=== PATIENT | male | born 1970 | race African-American/Black ===

== ENCOUNTER 2016-08-03 18:40 | Outpatient (CLI) | payer BC, MEDICARE ==
[~2016-08-03 18:40] MED LIST: COREG25 MG PO; COZAAR50 MG PO; LASIX20 MG PO; LEVEMIR100 U/M1; LEVEMIR100 U/M1 SC; NORVASC10 MG PO; NOVOLIN 70/30 110 ML; NOVOLOG100 U/M1; PHOSLO667 MG PO; VICODIN PO
[2016-08-04 00:08] LABS: BASOPHILS 0.3 % (0.0-2.0); HEMATOCRIT 39.5 % (42.0-54.0); HEMOGLOBIN 12.3 g/dL (13.5-17.5); IMMATURE GRANULOCYTES 0.2 % (0-5); LYMPHOCYTES 21.9 % (15-50); MCH 29.5 pg (26.0-34.0); MCHC 31.1 g/dL (31.0-37.0); MCV 94.7 fL (80.0-100.0); MONOCYTES 7.5 % (2-11); NEUTROPHILS 69.1 % (40-80); PLATELET COUNT 171 10x3/uL (130-400); RBC 4.17 10x6/uL (4.20-6.10); RDW 15.1 % (11.5-14.5)
[2016-08-04 00:35] LABS: ALBUMIN 3.9 g/dL (3.4-5.0); ANION GAP 20.1 mmol/L (8-16); BILIRUBIN - TOTAL 0.97 mg/dL (0.2-1.3); CALCIUM 7.7 mg/dL (8.5-10.1); CREATININE - SERUM 10.7 mg/dL (0.6-1.3); POTASSIUM - SERUM 5.1 mmol/L (3.5-5.1)
[2016-08-04] MEDS ORDERED: PHOSLO667 MG PO (00:35)
[2016-08-04 05:08] LABS: BASOPHILS 0.4 % (0.0-2.0); EOSINOPHILS 1.3 % (0-7); HEMOGLOBIN 12.3 g/dL (13.5-17.5); IMMATURE GRANULOCYTES 0.2 % (0-5); LYMPHOCYTES 25.4 % (15-50); MCH 29.4 pg (26.0-34.0); MCHC 30.8 g/dL (31.0-37.0); MCV 95.5 fL (80.0-100.0); MONOCYTES 8.3 % (2-11); NEUTROPHILS 64.4 % (40-80); PLATELET COUNT 140 10x3/uL (130-400); RBC 4.19 10x6/uL (4.20-6.10); RDW 15.1 % (11.5-14.5); WBC 5.4 10x3/uL (4.8-10.8)
[2016-08-04 05:26] LABS: ANION GAP 16.9 mmol/L (8-16); CALCIUM 7.7 mg/dL (8.5-10.1); CARBON DIOXIDE 29.5 mmol/L (21.0-32.0); CREATININE - SERUM 11.4 mg/dL (0.6-1.3); POTASSIUM - SERUM 5.4 mmol/L (3.5-5.1)
[2016-08-04] MEDS ORDERED: KAYEXALATE15 G/60 ML PO (09:53)
== END 2016-08-04 12:34 | disposition home or self-care (01) ==
LOC: D.OPS 18:40
PROVIDERS: Internal Medicine Nephrology
DX: E87.5 Hyperkalemia (principal); N18.6 End stage renal disease; I12.0 Hypertensive chronic kidney disease with stage 5 chronic kidney disease or end stage renal disease; E11.22 Type 2 diabetes mellitus with diabetic chronic kidney disease; Z99.2 Dependence on renal dialysis; Z79.4 Long term (current) use of insulin

== ENCOUNTER 2017-07-29 07:46 | Day surgery (SDC) | payer BC, MEDICARE ==
[~2017-07-29] VITALS: Ht 177.8 cm; Wt 85.7 kg
--- NOTE | ~2017-07-29 | OP ---
PATIENT NAME: RADHA DSOUZA MEDICAL RECORD: [id number] :72 LOCATION:[facility] ADMISSION DATE: SURGEON: OLAYINKA MARTIN MD DATE OF OPERATION: 07/29/2017 REFERRING PHYSICIAN: Dr. Yang PREOPERATIVE DIAGNOSIS: End-stage renal disease. POSTOPERATIVE DIAGNOSIS: End-stage renal disease. OPERATION PERFORMED: Insertion left upper extremity HeRO AV graft, implanting a new Acuseal PTFE graft in a very shallow or superficial subcutaneous plane from the distal axillary or most proximal brachial artery to the HeRO outflow device in the left deltopectoral groove. SURGEON: Olayinka Martin MD ANESTHESIA: General with LMA per PIPE CLEANING MACHINE OPERATOR. PREOP NOTE: Mr. Dsouza is a 47-year-old -Irish male from [place], who has diabetes and hypertension, has developed end-stage renal disease and is now on dialysis and at this time is catheter dependent with a PVC in the right internal jugular vein position. He has had numerous prior accesses, which have thrombosed. He has had a HeRO graft in the left upper extremity, which also thrombosed but this was several months ago. Dr. Lee had operated on him and had difficulties with a severely arthrosclerotic brachial artery. I believe, the origin of the HeRO graft was from the distal brachial above the level of the antecubital space from the mid humeral level of the brachial artery. This gentleman is brought to the hospital and to the operating room today for the first time for surgery with me. I plan to remove the thrombus from his HeRO graft and do revision of the PTFE segment. Under general anesthesia, the patient was prepped and draped in sterile manner and I then examined his graft in left upper extremity with ultrasound. I noted that the PTFE portion of the HeRO graft was deeper than I prefer in the upper half of the arm. Actually, it was beneath the fascial level and partially intramuscular. Distally, it was deep in the subcutaneous tissues. I examined the brachial artery from elbow and arm. I saw that the axillary artery distally and the proximal brachial artery appeared suitable for anastomosis to provide arterial inflow for dialysis graft. There was a great deal of scarring in that area. The patient has had previous mobilization of the basilic vein and has had grafts and stents in the axilla. I did make then a longitudinal incision in the upper arm up to the axilla, and through the fairly dense scar tissue, exposed the axillary artery and controlled it with Silastic loops. I did my best during the dissection to avoid injury by stretch or sharp trauma or electrocautery to the surrounding brachial plexus. I made a counterincision distally on the arm and exposed the PTFE graft and confirmed what indeed was in my opinion too deep. I then made an incision over the deltopectoral groove and exposed the HeRO outflow device and its junction coupling with the PTFE graft. I transected the PTFE graft and removed thrombus from the outflow device by aspiration and passage of a 4-Estonian Scott embolectomy catheter and then the outflow device was flushed with heparinized saline, after which contrast was injected with digital C-arm fluoroscopy, performing digital subtraction angiography and free flow of contrast into the right atrium was confirmed. I then also noted that OPERATIVE REPORT [id number] RADHA DSOUZA the HeRO outflow device was in good position with its tip deep in the right atrium and no evidence of any kinks or other complications. I then flushed and heparin locked the outflow device. I chose a 50-cm long, 6-mm diameter straight Acuseal [place] PTFE graft and opened a HeRO repair kit and placed the Acuseal device on the connector. I clamped the outflow device directly and then transected it proximal to the old connector and attached the new connector. I then aspirated from the end of the Acuseal graft and returned blood without thrombus. The graft and the outflow device were then again flushed generously with heparinized saline and clamped. The graft was pulled through a very shallow immediately subcutaneous tunnel from the deltopectoral groove down to the counterincision just above the antecubital space and from there backup the medial aspect of the arm to the axillary incision. The artery was occluded with Silastic loops. It was opened for distance of about 6 mm. It was flushed proximally and distally with heparinized saline. The Acuseal graft was transected and bevelled and anastomosed to the artery, end of graft to side artery with running 6-0 Prolene. After the anastomosis suturing was completed, it was further sealed with BioGlue. When that had time to cure, the occluding clamps and loops were released and immediately good flow was established in the HeRO graft and hemostasis was excellent. The wounds were then irrigated as it had been intermittently throughout the procedure with gentamicin and Ancef solution. The patient was given a gram of Ancef intraoperatively as well. The axillary artery proximal and distal was interrogated with Doppler and there was good polyphasic flow present on both sides of the anastomosis and at the antecubital level on the brachial artery. The wounds were infiltrated with 0.25% Marcaine and then closed without the use of drains with interrupted 3-0 Vicryl. I did use 2-0 Prolene suture to anchor the HeRO connector junction to the fascia in the deltopectoral groove. The skin incisions, 3 of them, were closed with running intracuticular 4-0 Monocryl and Dermabond glue. They were dressed with Maxorb Ag, Tegaderm, and Cavilon skin prep. The patient's right internal jugular tunneled dialysis catheter was not removed or manipulated today. I will plan for the patient to most likely go home today, assuming his pain control postop is adequate. I will have him continue the same diet and medications at home and continue his routine dialysis schedule tomorrow. I will have him come back to see me in my office next week. At that time, if his HeRO graft is functioning and there is no reason to delay any longer, we will have the Acuseal graft accessed, and within a week or two of that, we can have the tunneled catheter removed. Blood loss during the operation was estimated at about 20 cc to 30 cc, none was replaced intraoperatively. All sponges, instruments, and needles were accounted for. No drain was used and no surgical specimen was submitted for histopathology. Thrombus removed from the HeRO was discarded. ADDENDUM The patient will be continued on Plavix 75 mg a day as he has been preoperatively. I am also going to add, if his insurance will cover it, Eliquis 2.5 mg b.i.d. Then, also if he has not had a thorough thrombophilia evaluation, he should have those lab studies conducted. Also, the patient has a history of staph infection and I am going to place him on 100 mg of doxycycline daily for 30 days. OPERATIVE REPORT [id number] RADHA DSOUZAELE BUFFYINT:[id number] Voice Confirmation ID: [id number] DOCUMENT ID: [id number] 08/11/2017 Edited to fill in pre/postop diagnosis, OLAYINKA Coello MD at 2012 CC: YUMIKO YANG [id number] DICTATION DATE: 07/29/17 1640 FISH NET MAKER: 07/29/17 1836 [facility] 07/29/17 [place] [place] [address]
[~2017-07-29 07:46] MED LIST changes: +KAYEXALATE15 G/60 ML PO
[2017-07-29 08:48] VITALS: BP 94/42; Ht 177.8 cm; Wt 85.7 kg
[2017-07-29] MEDS ORDERED: PLAVIX75 MG PO (08:53)
[2017-07-29 08:56] LABS: BASOPHILS 0.2 % (0-2); EOSINOPHILS 2.2 % (0-7); HEMATOCRIT 42.1 % (42.0-54.0); HEMOGLOBIN 13.1 g/dL (13.5-17.5); IMMATURE GRANULOCYTES 0.9 % (0-5); LYMPHOCYTES 16.5 % (15-50); MCH 28.9 pg (26.0-34.0); MCHC 31.1 g/dL (31.0-37.0); MCV 92.9 fL (80.0-100.0); MONOCYTES 7.4 % (2-11); NEUTROPHILS 72.8 % (40-80); PLATELET COUNT 113 10x3/uL (130-400); RBC 4.53 10x6/uL (4.20-6.10); RDW 16.1 % (11.5-14.5); WBC 5.4 10x3/uL (4.8-10.8)
[2017-07-29 09:05] LABS: APTT 20.8 SECONDS (22.8-39.4); INR 1.04 (0.85-1.17); PROTIME 13.2 SECONDS (11.6-15.0)
[2017-07-29 09:07] LABS: ANION GAP 22.4 mmol/L (8-16); CALCIUM 8.5 mg/dL (8.5-10.1); CARBON DIOXIDE 24.7 mmol/L (21.0-32.0); CREATININE - SERUM 10.5 mg/dL (0.6-1.3); POTASSIUM - SERUM 5.1 mmol/L (3.5-5.1)
[2017-07-29] MEDS ORDERED: ELIQUIS2.5 MG PO (16:04)
[2017-07-29] MEDS ORDERED: HYDROCODON-ACE1 EAC7 PO (16:04)
== END 2017-07-29 17:52 | disposition home or self-care (01) ==
LOC: D.OPS 07:46
PROVIDERS: Surgery
DX: T82.868A Thrombosis due to vascular prosthetic devices, implants and grafts, initial encounter (principal); E11.22 Type 2 diabetes mellitus with diabetic chronic kidney disease; I12.0 Hypertensive chronic kidney disease with stage 5 chronic kidney disease or end stage renal disease; N18.6 End stage renal disease; Z99.2 Dependence on renal dialysis; D68.59 Other primary thrombophilia; Z01.812 Encounter for preprocedural laboratory examination

== ENCOUNTER 2017-08-29 09:30 | Inpatient (IN) | payer BC ==
[~2017-08-29] VITALS: Ht 177.8 cm; Wt 85.9 kg
[~2017-08-29 09:30] MED LIST changes: +ELIQUIS2.5 MG PO; +HYDROCODON-ACE1 EAC7 PO; +PLAVIX75 MG PO
[2017-08-29 19:00] VITALS: BP 135/101
[2017-08-29 20:00] VITALS: BP 125/91
[2017-08-29 21:00] VITALS: BP 117/83
[2017-08-29 21:41] LABS: BASOPHILS 0.4 % (0-2); EOSINOPHILS 3.8 % (0-7); HEMATOCRIT 33.5 % (42.0-54.0); HEMOGLOBIN 10.2 g/dL (13.5-17.5); LYMPHOCYTES 35.9 % (15-50); MCH 28.5 pg (26.0-34.0); MCHC 30.4 g/dL (31.0-37.0); MCV 93.6 fL (80.0-100.0); MEAN PLATELET VOLUME 10.4 fL (7.4-10.4); MONOCYTES 6.7 % (2-11); NEUTROPHILS 53.2 % (40-80); PLATELET COUNT 128 10x3/uL (130-400); RBC 3.58 10x6/uL (4.20-6.10); RDW 15.4 % (11.5-14.5); WBC 4.5 10x3/uL (4.8-10.8)
[2017-08-29 22:00] VITALS: BP 110/77
[2017-08-29 22:50] VITALS: BP 135/101; BMI 27.6
[2017-08-29 23:00] VITALS: BP 109/76
[2017-08-30] VITALS (15 sets, daily range): BP systolic 112–150; BP diastolic 74–109; Ht 177.8 cm; Wt 85.9 kg
[2017-08-30 06:32] LABS: BASOPHILS 0.2 % (0-2); HEMATOCRIT 34.6 % (42.0-54.0); HEMOGLOBIN 10.6 g/dL (13.5-17.5); LYMPHOCYTES 28.6 % (15-50); MCH 28.2 pg (26.0-34.0); MCHC 30.6 g/dL (31.0-37.0); MEAN PLATELET VOLUME 10.9 fL (7.4-10.4); MONOCYTES 4.7 % (2-11); NEUTROPHILS 63.5 % (40-80); PLATELET COUNT 136 10x3/uL (130-400); RBC 3.76 10x6/uL (4.20-6.10); RDW 15.5 % (11.5-14.5); WBC 4.3 10x3/uL (4.8-10.8)
[2017-08-30 06:43] LABS: APTT 27.3 SECONDS (22.8-39.4)
[2017-08-30 06:45] LABS: ANION GAP 16.7 mmol/L (8-16); CALCIUM 8.5 mg/dL (8.5-10.1); CARBON DIOXIDE 24.1 mmol/L (21.0-32.0); CREATININE - SERUM 9.9 mg/dL (0.6-1.3); POTASSIUM - SERUM 4.8 mmol/L (3.5-5.1)
[2017-08-30 12:43] LABS: BASOPHILS 0.6 % (0-2); EOSINOPHILS 2.6 % (0-7); HEMATOCRIT 33.2 % (42.0-54.0); HEMOGLOBIN 10.1 g/dL (13.5-17.5); IMMATURE GRANULOCYTES 0.2 % (0-5); MCH 28.3 pg (26.0-34.0); MCHC 30.4 g/dL (31.0-37.0); MEAN PLATELET VOLUME 10.6 fL (7.4-10.4); MONOCYTES 5.1 % (2-11); NEUTROPHILS 67.5 % (40-80); PLATELET COUNT 136 10x3/uL (130-400); RBC 3.57 10x6/uL (4.20-6.10); RDW 15.4 % (11.5-14.5); WBC 4.7 10x3/uL (4.8-10.8)
[2017-08-30 12:51] LABS: APTT 33.4 SECONDS (22.8-39.4)
[2017-08-30 16:21] LABS: BASOPHILS 0.5 % (0-2); EOSINOPHILS 3.8 % (0-7); HEMATOCRIT 31.8 % (42.0-54.0); HEMOGLOBIN 9.9 g/dL (13.5-17.5); LYMPHOCYTES 31.7 % (15-50); MCH 28.6 pg (26.0-34.0); MCHC 31.1 g/dL (31.0-37.0); MCV 91.9 fL (80.0-100.0); MEAN PLATELET VOLUME 10.4 fL (7.4-10.4); MONOCYTES 4.3 % (2-11); NEUTROPHILS 59.7 % (40-80); PLATELET COUNT 129 10x3/uL (130-400); RBC 3.46 10x6/uL (4.20-6.10); RDW 15.3 % (11.5-14.5); WBC 4.2 10x3/uL (4.8-10.8)
[2017-08-30 16:33] LABS: APTT 35.8 SECONDS (22.8-39.4)
[2017-08-30 22:31] LABS: BASOPHILS 0.9 % (0-2); EOSINOPHILS 2.7 % (0-7); HEMATOCRIT 33.1 % (42.0-54.0); HEMOGLOBIN 10.2 g/dL (13.5-17.5); IMMATURE GRANULOCYTES 0.2 % (0-5); LYMPHOCYTES 19.9 % (15-50); MCH 28.3 pg (26.0-34.0); MCHC 30.8 g/dL (31.0-37.0); MCV 91.9 fL (80.0-100.0); MEAN PLATELET VOLUME 9.4 fL (7.4-10.4); MONOCYTES 5.1 % (2-11); NEUTROPHILS 71.2 % (40-80); PLATELET COUNT 129 10x3/uL (130-400); RDW 15.4 % (11.5-14.5)
[2017-08-30 22:43] LABS: APTT 37.5 SECONDS (22.8-39.4)
[2017-08-31 01:00] VITALS: BP 107/80
[2017-08-31 04:57] LABS: BASOPHILS 0.3 % (0-2); HEMATOCRIT 32.6 % (42.0-54.0); HEMOGLOBIN 9.9 g/dL (13.5-17.5); IMMATURE GRANULOCYTES 0.3 % (0-5); LYMPHOCYTES 27.7 % (15-50); MCHC 30.4 g/dL (31.0-37.0); MCV 92.1 fL (80.0-100.0); MEAN PLATELET VOLUME 11.2 fL (7.4-10.4); MONOCYTES 6.6 % (2-11); NEUTROPHILS 62.1 % (40-80); PLATELET COUNT 145 10x3/uL (130-400); RBC 3.54 10x6/uL (4.20-6.10); RDW 15.5 % (11.5-14.5); WBC 3.9 10x3/uL (4.8-10.8)
[2017-08-31 05:12] LABS: APTT 38.2 SECONDS (22.8-39.4)
[2017-08-31 05:24] LABS: ANION GAP 16.3 mmol/L (8-16); CALCIUM 8.5 mg/dL (8.5-10.1); CARBON DIOXIDE 26.8 mmol/L (21.0-32.0); CREATININE - SERUM 8.8 mg/dL (0.6-1.3); POTASSIUM - SERUM 4.1 mmol/L (3.5-5.1)
[2017-08-31 06:11] VITALS: BP 139/91
[2017-08-31 09:04] VITALS: BP 109/79
== END 2017-08-31 10:55 | disposition home or self-care (01) | DRG 252 ==
LOC: D.OPS 09:30 → UNDOADMIN 16:26 → D.ICU 16:26 → EDSTATUS 08-30 09:30 → D.M2 08-30 15:47 → D.ICU 08-30 15:47 → D.M2 08-30 15:47
PROVIDERS: Internal Medicine Nephrology; Surgery
PROC: 03773ZZ Dilation of Right Brachial Artery, Percutaneous Approach (ICD-10-PCS; 2017-08-29)
PROC: B31H1ZZ Fluoroscopy of Right Upper Extremity Arteries using Low Osmolar Contrast (ICD-10-PCS; 2017-08-29)
PROC: 3E03317 Introduction of Other Thrombolytic into Peripheral Vein, Percutaneous Approach (ICD-10-PCS; 2017-08-29)
PROC: B31J1ZZ Fluoroscopy of Left Upper Extremity Arteries using Low Osmolar Contrast (ICD-10-PCS; 2017-08-30)
PROC: 5A1D70Z Performance of Urinary Filtration, Intermittent, Less than 6 Hours Per Day (ICD-10-PCS; 2017-08-30)
PROC: B51W1ZZ Fluoroscopy of Dialysis Shunt/Fistula using Low Osmolar Contrast (ICD-10-PCS; principal; 2017-08-30 09:30)
DX: T82.868A Thrombosis due to vascular prosthetic devices, implants and grafts, initial encounter (principal); N18.6 End stage renal disease; I12.0 Hypertensive chronic kidney disease with stage 5 chronic kidney disease or end stage renal disease; D68.59 Other primary thrombophilia; Y83.8 Other surgical procedures as the cause of abnormal reaction of the patient, or of later complication, without mention of misadventure at the time of the procedure; E11.22 Type 2 diabetes mellitus with diabetic chronic kidney disease; Z99.2 Dependence on renal dialysis; Z79.4 Long term (current) use of insulin; E83.39 Other disorders of phosphorus metabolism

== ENCOUNTER → 2017-08-29 16:50 | Day surgery (SDC) | payer BC ==
[~2017-08-29] VITALS: Ht 177.8 cm; Wt 85.7 kg
--- NOTE | ~2017-08-29 | OP ---
PATIENT NAME: RADHA DSOUZA MEDICAL RECORD: [id number] :72 LOCATION:[facility] ADMISSION DATE: SURGEON: OLAYINKA MARTIN MD DATE OF OPERATION: 08/29/2017 PREOPERATIVE DIAGNOSES: End-stage renal disease and dependence on hemodialysis and insulin-dependent diabetes with renal complications as well as atherosclerotic peripheral arterial occlusive disease and thrombophilia and thrombosis of left arm, HeRO graft. POSTOPERATIVE DIAGNOSES: End-stage renal disease and dependence on hemodialysis and insulin-dependent diabetes with renal complications as well as atherosclerotic peripheral arterial occlusive disease and thrombophilia and thrombosis of left arm, HeRO graft. OPERATION PERFORMED: Left arm HeRO graft angiogram with AngioJet thrombolysis and balloon angioplasty of arterial anastomotic stenosis, selective brachial artery arteriogram and infusion of TPA to lyse chronic occlusions and acute emboli. SURGEON: Olayinka Martin MD ANESTHESIA: General with LMA per FINISHED METAL REPAIRER. PREOPERATIVE NOTE: Mr. Dsouza is a 47-year-old insulin-dependent diabetic -Macanese male with end-stage renal disease on chronic hemodialysis, who has thrombophilia and has had a complicated course with multiple dialysis access failures. Dr. Lee had implanted a HeRO graft based on the left arm while he was up in [place] and there had been complications from that and had thrombosed after several interventions. He was eventually referred to me and I then eventually performed a revision of his HeRO graft implanting a new Acuseal graft and anastomosing it to the proximal brachial artery above the areas where the previous surgery anastomoses had been done. At the time of that operation, I noted fairly severe atherosclerotic disease involving the brachial artery. The patient was placed on Plavix and later discharged. He went on to have a dialysis on the following Friday in [place], which was successful; however, when he returned for dialysis on Friday, his HeRO graft was thrombosed. This was about 2 weeks ago and due to his transportation difficulties, he has been unable to get back to have a declot operation since then. He comes in today as an outpatient with plans to do an angiogram and AngioJet thrombolysis and indicated procedures and HeRO graft. Under general anesthesia in supine position, the patient was prepped and draped in sterile manner. I accessed his graft with micropuncture technique and placed two 6-Eritrean introducer sheaths directed antegrade and retrograde. A Glidewire was advanced through the body of the graft and the venous outflow tract and an AngioJet catheter used to lyse thrombus from the right atrium to the mid humeral level. The patient was systemically heparinized with a total of 10,000 units of heparin and then given an additional 3000 units of heparin as IV boluses during the procedure as well. I then lysed thrombus in the arterial portion of the graft with the AngioJet and advanced a Glidewire and glide catheter into the proximal brachial artery and performed a selective brachial artery arteriogram. This revealed severe occlusive disease in the brachial artery above the antecubital space with collateral filling of branches around the elbow and into the forearm. Flow into the forearm and hand was very slow. I noted that there OPERATIVE REPORT [id number] RADHA DSOUZA was significant narrowing and possibly a thrombus within the arterial anastomosis. This was subsequently treated with Scott balloon embolectomy and balloon angioplasty with a 7-mm diameter Admiral angioplasty balloon and subsequent retrograde contrast injection demonstrated a very nice result with a wide open arterial anastomosis; however, what appeared to be a clot was blown back up into the brachial artery. I removed this, I believe successfully with a Scott embolectomy catheter and then I performed a repeat selective brachial arteriogram. I confirmed that the flow was restored within the HeRO graft. 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 I noted that there was very little detectable Doppler flow in the brachial artery at the antecubital space and none in the radial or ulnar arteries with a handheld continuous wave Doppler. I was unable to through that geometry to advance the AngioJet catheter across the arterial anastomosis and down the brachial artery or the Scott catheter, I was unable to pass the Glidewire distally through the occluded segment and I think this as I said, a chronic total occlusion. I did leave a glide catheter in the brachial artery just above this chronic total occlusion. I tried to leave an infusion catheter, but it was too stiff at the tip and will not make the bend through the arterial anastomosis to go down into the brachial artery. I infused 2 mg of Activase slowly into the distal brachial artery. This was mixed with the contrast so that I could watch its dispersion and after some delay at least one repeated angiogram revealed really no improvement. I elected to leave the catheter in the brachial artery for continuous TPA infusion. The retrograde upon the antegrade 6-Eritrean port was removed and the skin site sutured with a [id number] 4-0 Prolene and some direct pressure held on this for a while and hemostasis was achieved, thanks to the proper use of the Acuseal graft. Sterile dressing was applied at the other site with the glide catheter as I have said left in place. The patient was subsequently awakened and with a functioning HeRO graft and very cold extremities from the prolonged period of time in a cold environment in the operating room, he was taken to the recovery area. I am planning on continuing a TPA infusion at 1 mg per hour through the catheter placed just above the occlusion in the brachial artery. I will also continue heparin infusion at 500 units per hour via the side arm on the introducer sheath through which the glide catheter is placed. He will be monitored in the ICU and this will include q.6 hours CBC, PTT, and fibrinogen. I have asked that I be called if his fibrinogen level should fall below 200. I will stop his TPA early in the morning and plan on bringing him back to the operating room to repeat an angiogram and to remove the sheath. Blood loss during the operation was probably about 20 cc. None was replaced intraoperatively. All sponges, instruments, and needles were accounted for. No drain was used. TRANSINT:[id number] Voice Confirmation ID: [id number] DOCUMENT ID: [id number] OPERATIVE REPORT [id number] RADHA DSOUZA JAMES MD at 1751 CC: [id number] DICTATION DATE: 08/29/17 165 RODEO PERFORMER: 08/29/17 210 [facility] 08/29/17 [facility] [address] [place] [address]
[2017-08-29 10:25] VITALS: Ht 177.8 cm; Wt 85.7 kg
[2017-08-29 10:48] LABS: BASOPHILS 0.5 % (0-2); EOSINOPHILS 3.9 % (0-7); HEMATOCRIT 34.1 % (42.0-54.0); HEMOGLOBIN 10.3 g/dL (13.5-17.5); IMMATURE GRANULOCYTES 0.2 % (0-5); MCH 28.2 pg (26.0-34.0); MCHC 30.2 g/dL (31.0-37.0); MCV 93.4 fL (80.0-100.0); MEAN PLATELET VOLUME 10.7 fL (7.4-10.4); MONOCYTES 5.1 % (2-11); NEUTROPHILS 58.3 % (40-80); PLATELET COUNT 144 10x3/uL (130-400); RBC 3.65 10x6/uL (4.20-6.10); RDW 15.4 % (11.5-14.5); WBC 4.1 10x3/uL (4.8-10.8)
[2017-08-29 10:58] LABS: APTT 33.3 SECONDS (22.8-39.4); INR 1.09 (0.85-1.17); PROTIME 13.7 SECONDS (11.6-15.0)
[2017-08-29 11:02] LABS: ANION GAP 13.4 mmol/L (8-16); CALCIUM 8.8 mg/dL (8.5-10.1); CARBON DIOXIDE 27.6 mmol/L (21.0-32.0); CREATININE - SERUM 8.2 mg/dL (0.6-1.3)
[2017-08-29 15:24] LABS: FIBRINOGEN 397 mg/dL (239-481)
[2017-08-29 15:42] LABS: INR 1.38 (0.85-1.17); PROTIME 16.5 SECONDS (11.6-15.0)
[2017-08-29 16:13] LABS: APTT > 200.0 SECONDS (22.8-39.4)
[2017-08-29 16:33] LABS: BASOPHILS 0.6 % (0-2); EOSINOPHILS 3.4 % (0-7); HEMATOCRIT 30.5 % (42.0-54.0); HEMOGLOBIN 9.3 g/dL (13.5-17.5); LYMPHOCYTES 42.2 % (15-50); MCH 28.4 pg (26.0-34.0); MCHC 30.5 g/dL (31.0-37.0); MCV 93.3 fL (80.0-100.0); MEAN PLATELET VOLUME 10.5 fL (7.4-10.4); MONOCYTES 7.6 % (2-11); NEUTROPHILS 46.2 % (40-80); PLATELET COUNT 126 10x3/uL (130-400); RBC 3.27 10x6/uL (4.20-6.10); RDW 15.4 % (11.5-14.5)
[2017-08-29 16:38] LABS: ANION GAP 16.4 mmol/L (8-16); CALCIUM 8.1 mg/dL (8.5-10.1); CARBON DIOXIDE 25.9 mmol/L (21.0-32.0); CREATININE - SERUM 8.2 mg/dL (0.6-1.3); POTASSIUM - SERUM 4.3 mmol/L (3.5-5.1)
[2017-08-29 17:06] LABS: WBC 5.3 10x3/uL (4.8-10.8)
== END | disposition home or self-care (01) ==
LOC: D.OPS 11:00
PROVIDERS: Anesthesiology; Internal Medicine Nephrology; Surgery
DX: T82.868A Thrombosis due to vascular prosthetic devices, implants and grafts, initial encounter (principal); E11.22 Type 2 diabetes mellitus with diabetic chronic kidney disease; I12.0 Hypertensive chronic kidney disease with stage 5 chronic kidney disease or end stage renal disease; N18.6 End stage renal disease; Z99.2 Dependence on renal dialysis; Z79.4 Long term (current) use of insulin; I70.298 Other atherosclerosis of native arteries of extremities, other extremity; I70.92 Chronic total occlusion of artery of the extremities; D68.69 Other thrombophilia; Z01.812 Encounter for preprocedural laboratory examination

== ENCOUNTER → 2018-05-13 11:57 | Outpatient (CLI) | payer MEDICARE, BC ==
[2017-08-30 09:22] VITALS: BMI 27.5
== END | disposition home or self-care (01) ==
LOC: D.CT 04-27 12:30
DX: N18.6 End stage renal disease (principal); Z99.2 Dependence on renal dialysis; D68.69 Other thrombophilia

== ENCOUNTER 2018-06-19 09:29 | Day surgery (SDC) | payer MEDICARE, BC ==
[~2018-06-19] VITALS: Ht 177.8 cm; Wt 86.8 kg
[~2018-06-19 09:29] MED LIST changes: +LEVEMIR IN100 UNITS/ SC; -LEVEMIR100 U/M1 SC
[2018-06-19 10:58] VITALS: BMI 28.3
[2018-06-19 11:28] LABS: BASOPHILS 0.2 % (0-2); EOSINOPHILS 3.3 % (0-7); HEMATOCRIT 32.9 % (42.0-54.0); IMMATURE GRANULOCYTES 0.2 % (0-5); LYMPHOCYTES 27.9 % (15-50); MCH 29.3 pg (26.0-34.0); MCHC 30.4 g/dL (31.0-37.0); MCV 96.5 fL (80.0-100.0); MEAN PLATELET VOLUME 10.1 fL (7.4-10.4); MONOCYTES 7.8 % (2-11); NEUTROPHILS 60.6 % (40-80); PLATELET COUNT 172 10x3/uL (130-400); RBC 3.41 10x6/uL (4.20-6.10); RDW 16.8 % (11.5-14.5); WBC 4.5 10x3/uL (4.8-10.8)
[2018-06-19 11:35] LABS: ANION GAP 19.8 mmol/L (8-16); CALCIUM 7.4 mg/dL (8.5-10.1); CARBON DIOXIDE 26.2 mmol/L (21.0-32.0); CREATININE - SERUM 8.7 mg/dL (0.6-1.3)
--- NOTE | 2018-06-19 12:00 | NUR ---
1/2 AMP D50 ADMINISTERED BY Clifford MACEDO RN FOR BS IF 54 PER ANESTHESIA.
--- NOTE | 2018-06-19 12:30 | NUR ---
FSBS 101 AFTER 1/2 AMP D50. RELATES TO NURSE HE IS FEELING BETTER.
[2018-06-19 12:59] LABS: APTT 33.9 SECONDS (22.8-39.4); INR 1.01 (0.85-1.17); PROTIME 12.8 SECONDS (11.6-15.0)
--- NOTE | 2018-06-19 18:11 | NUR ---
ARCHANA ASHRAF APPLIED @2681
--- NOTE | 2018-06-19 19:50 | NUR ---
PT TO ROOM FROM OR VIA BED ACCOMPANIED BY RN AND GIRLFRIEND. PT LETHARGIC BUT ORIENTED X4. NO C/O PAIN OR DISCOMFORT AT THIS TIME. DRESSING TO L GROIN C/D/I WITH KHANH DRAIN ATTACHED AND COMPRESSED, DRAINING SCANT AMOUNT OF BLOODY FLUID. IV TO R FA WITH NS HANGING VIA GRAVITY. VSS. DIMMED LIGHTS FOR COMFORT, BED IN LOWEST POSITION, CL IN REACH, SR UP X2. WCTM AND FOLLOW POC.
--- NOTE | 2018-06-20 02:54 | NUR ---
TO PT ROOM VIA LIGHT - IV PUMP BEEPING. CHECKED PT'S GLUCOSE LEVELS HE HAD LOW LEVELS IN OR AND HAD NOT EATEN ANYTHING. GLUCOSE LEVEL WAS 46 PER GLUCOMETER. PT A/O X4, NO C/O DIZZINESS OR BEING CLAMMY. GAVE PT RADHA CRACKERS, PEANUT BUTTER, AND ORANGE JUICE. WILL RECHECK SUGAR IN 30 MINUTES. NO OTHER NEEDS AT THIS TIME. VSS. GIRLFRIEND AT BEDSIDE. WCTM. SR UP X2, BED IN LOWEST POSITION, CL IN REACH.
--- NOTE | 2018-06-20 03:31 | NUR ---
BLOOD SUGAR RECHECKED AND NOW AT 74. MORE RADHA CRACKERS AT BEDSIDE JUST IN CASE PATIENT WANTS A SNACK. WCTM. CL IN REACH, SR UP X2, BED IN LOWEST POSITION. NO FURTHER NEEDS AT THIS TIME.
[2018-06-20 03:33] VITALS: BP 118/62; Ht 177.8 cm; Wt 86.8 kg
[2018-06-20 05:02] VITALS: BP 137/9
[2018-06-20 08:03] VITALS: BP 199/77
--- NOTE | 2018-06-20 09:05 | NUR ---
UPON GOING OVER CHART BERTA COORDINATOR NOTICED MULTIPLE NURSING ORDERS NOT COMPLETED. DISCUSSED WITH DAYSHIFT NURSE NIDIA AND SHE WAS UNAWARE WHY [facility] DIDNT FOLLOW THROUGH AND WANT THEY DID DO NO NOTES WERE ENTERED INDICATING IT. REVIEWED PTS HOME MEDICATIONS AND COMPLETED MED REC PER PTS CHANGES FOR ACCURACY, THEY DID NOT REVIEW YESTERDAY. HAD VERY SPECIFIC ORDERS TO CONTACT NEPHROLOGY THAT SURGERY WAS COMPLETE YESTERDAY AND NEEDS FOR DIALYSIS THIS AM SO PT CAN BE DISCHARGED HOWEVER THAT WASNT DONE. I PAGED SOFYA OLIVO FOR RENAL AND SHE WILL ADD PT TO LIST. ALSO KHANH DRAIN TO L.UPPER THIGH HAD BLOODY DRAINAGE BUT WAS NOT COMPRESSED NOR HAD IT BEEN EMPTIED PER ORDERS OR EVEN CHARTED OUTPUT OVERNIGHT. I MILKED TUBING, MADE SURE DRSG WAS SECURED AND EMPTIED 50CC OF BLOOD AND NOW KHANH DRAIN COMPRESSED FOR DRAINAGE. PT VOICED THANKS AND STATES NOONE TOUCHED IT LAST NIGHT SO IT APPEARS THAT THE OVERNIGHT DRAINAGE WAS 50CC. PT DENIES WANTING HOME HEALTH AND CAN BE TAUGHT KHANH INSTRUCTIONS IF NEEDED WILL DISCUSS WITH CM AND FIND OUT. STATES HE WOULD RECCOMEND BRILINTA OR ELIQUIS HOWEVER WHEN I DISCUSSED WITH RENAL DISTRICT ATTORNEY THEY STATE INSURANCE DOES NOT COVER. WILL PAGE TO INQUIRE IF PT CAN DO COUMADIN INSTEAD. NO IMMEDIATE NEEDS WILL FIND OUT DISCHARGE PLANNING.
--- NOTE | 2018-06-20 09:25 | NUR ---
CHECKED L.THIGH FOR CIRCULATION. BOUNDING PULSATION PALPATED THEN DOPPLERED THAT THIGH AND STRONG BRUIT NOTED. PALPABLE LEFT FOOT PULSES WELL. DISCUSSED WITH PRIMARY NURSE NIDIA AND REPORTED TO . NO CURRENT NEEDS.
--- NOTE | 2018-06-20 09:31 | NUR ---
PT TAKEN TO DIALYSIS VIA BED.
--- NOTE | 2018-06-20 10:30 | NUR ---
CALLED REGISTRATION TO CHANGE PT TO INPATIENT ORDERED PER BUT UNDER ADMITTING. THEY WILL CHANGE IT OVER.
[2018-06-20] MEDS ORDERED: HYDRALAZINE HC100 MG PO (10:43)
[2018-06-20] MEDS ORDERED: COUMADIN5 MG PO (12:28)
[2018-06-20] MEDS ORDERED: ULTRAM50 MG PO (12:29)
[2018-06-20] MEDS ORDERED: ACETAMINOPHEN500 M1 PO (12:30)
--- NOTE | 2018-06-20 13:10 | NUR ---
SOFYA OLIVO STATES TO ME AND ELECTRIC MOTOR TESTER ASSEMBLER THAT PT WILL NEED HOME HEALTH TO PULL KHANH DRAIN AND PLAN FOR FRIDAY. SHE ALSO STATED CASE MANAGEMENT NEEDS TO HELP PT GET BRILANTA OR ELIQUIS SINCE HIS INSURANCE DOES NOT COVER. PT WILL BE ON COUMADIN UNTIL HE CAN GET ELIQUIS OR BRILANTA.
--- NOTE | 2018-06-20 13:12 | NUR ---
SOFYA OLIVO STATES SHE WILL HAVE DR. YANG MAKE THE FINAL DECISION ON PT DISCHARGING TODAY OR TOMORROW.
--- NOTE | 2018-06-20 13:37 | NUR ---
CALLED PRESCRIPTIONS TO [facility] [phone]. PRESCRIPTIONS FOR TRAMADOL AND COUMADIN ENTERED PER PHARMACIST [place].
--- NOTE | 2018-06-20 13:37 | NUR ---
RESTING QUIETLY NAD NOTED
--- NOTE | 2018-06-20 13:50 | NUR ---
PT BED BROKE DOWN IN HALLWAY. PT SWITCHED BEDS IN HALLWAY AND BROUGHT BACK TO ROOM FROM DIALYSIS.
--- NOTE | 2018-06-20 14:00 | NUR ---
PER SOFYA RENAL LATHING SUPERVISOR, DR. MARTIN SAID PT HAS TO HAVE HOME HEALTH FOR KHANH DRAIN MANAGEMENT AT HOME. TAIL END RIDER TO TAKE CARE OF PT'S HOME HEALTH NEEDS.
[2018-06-20] MEDS ORDERED: VIBRAMYCIN50 MG PO (14:05)
--- NOTE | 2018-06-20 14:07 | NUR ---
KHANH DRAIN EMPTIED 10CC AND COMPRESSED DRAIN BACK. PT INSTRUCTED HE NEEDS TO AMBULATE HALLWAY BEFORE DC. PT VERBALIZED UNDERSTANDING.
--- NOTE | 2018-06-20 14:40 | NUR ---
RIGHT UPPER ARM 20G IV DC'D WITH CTAH INTACT.
--- NOTE | 2018-06-20 15:39 | NUR ---
DOXYCYCLINE CALLED TO [facility] IN [place], .
--- NOTE | 2018-06-20 16:04 | NUR ---
PT AND PT'S TEACHING ON WOUND CARE AND KHANH DRAIN DONE. VISUAL AND VERBAL TEACHING DONE ON HOW TO EMPTY KHANH DRAIN. I ALSO STATED TO PT AND PT'S TO EMPTY Q4H AND PRN AND TO WRITE DOWN HOW MUCH IS EMPTIED EACH TIME. PRECIOUSE VERBALIZED UNDERSTANDING. GAVE PT'S MEASURING CUPS FOR KHANH DRAINAGE AND PROVIDED THEM WITH DRESSING WOUND CARE MATERIALS IF IT IS NEEDED. THOROUGHLY WENT OVER DISCHARGE INSTRUCTIONS WITH PT AND PT'S AND THEY BOTH VERBALIZED UNDERSTANDING. CHART COPY SIGNED.
--- NOTE | 2018-06-20 16:19 | NUR ---
PT TAKEN DOWN VIA WC BY LANGUAGE INTERPRETER AND ACCOMPANIED BY .
--- NOTE | 2018-06-22 10:53 | MORECARE ---
CASE MANAGEMENT DISCHARGE SUMMARY PATIENT: RADHA PAT UNIT: [id number] ADM DATE: 06/20/18 AGE: 48 : 71 SEX: M ROOM/BED: D.2133 AUTHOR: JEANA REY PHYSICIAN: REFERRING PHYSICIAN: YUMIKO YANG MD DATE OF SERVICE: 06/22/18 Discharge Plan Patient Name: RADHA PAT Facility: [facility]:[employer] : 1970 Planned Disposition: Home with Home Health Anticipated Discharge Date: 06/20/18 Discharge Date: 06/20/2018 Expected LOS: 1 Initial Reviewer: [email or web address] Initial Review Date: 06/20/2018 Generated: 06/22/18 11:53 am Comments DCP- Discharge Planning Updated by [email or web address]: Kitty Araiza on 06/20/18 1:[address] CM received an order to assist with Eliquis and Brilinta. Coupons provided and given to patient's nurse for patient upon discharge. Kitty Araiza RN CM Coverage Notice Reviewer: [email or web address] - Kitty Araiza Notice Issued Date-Time: 06/20/2018 10:43 Notice Type: Patient Choice Letter Notice Delivered To: Other Relationship to Patient: Life Partner Ross Furnace Operator Name: Joseph Davis Delivery Method: - Bertha Days: Prior Verbal Notification: Recipient Understood Notice: Recipient Signature: Med Rec Note Co-signed by Attending: Coverage Notice Comment: Patient Name: RADHA PAT Page [phone] at 1053 All edits/amendments must be made on the electronic document DICTATION DATE: 06/22/18 1053 BURRER MACHINE: MARINA 06/22/18 1053 RPT#: [id number] DC DATE:06/20/18 STATUS: DIS IN [facility] [address] [place] [address] END OF REPORT
--- NOTE | 2018-06-22 11:02 | MORECARE ---
CASE MANAGEMENT DISCHARGE SUMMARY PATIENT: RADHA PAT UNIT: [id number] ADM DATE: 06/20/18 AGE: 48 : 71 SEX: M ROOM/BED: D.2133 AUTHOR: JEANA REY PHYSICIAN: REFERRING PHYSICIAN: YUMIKO YANG MD DATE OF SERVICE: 06/22/18 Discharge Plan Patient Name: RADHA PAT Facility: [facility]:[employer] : 1970 Planned Disposition: Home with Home Health Anticipated Discharge Date: 06/20/18 Discharge Date: 06/20/2018 Expected LOS: 1 Initial Reviewer: [email or web address] Initial Review Date: 06/20/2018 Generated: 06/22/18 12:02 pm Comments DCP- Discharge Planning Updated by [email or web address]: Ryan Edwards on 06/22/18 9:[address] Patient Name: RADHA PAT Encounter No: [id number] : 1970 Primary Insurance: MEDICARE A & B Anticipated DC Date: 06-20-2018 Planned Disposition: Home with Home Health External Planned Provider: [facility] DCP follow-up note: CM REVIEWED CHART INDICATING PT HAD ORDER FOR HOME HEALTH ARRANGEMENT FOR DISCHARGE HOME. CM UNABLE TO DETERMINE IF HOME HEALTH HAD BEEN ARRANGED BY CHART NOTES. CM CALLED [facility], , SPOKE TO SINDY WHO INFORMED CM THAT THEY HAD RECEIVED FAXED REFERRAL, HAVE ALL NEEDED INFORMATION, AND WILL ADMIT FOR HOME HEALTH TOMORROW, 06-23-18. Ryan Edwards, HUMBERTO ANDRE DCP- Discharge Planning Updated by [email or web address]: Kitty Araiza on 06/20/18 1:[address] CM received an order to assist with Eliquis and Brilinta. Coupons provided and given to patient's nurse for patient upon discharge. Kitty Araiza RN CM Coverage Notice Reviewer: [email or web address] - Kitty Araiza Notice Issued Date-Time: 06/20/2018 10:43 Notice Type: Patient Choice Letter Notice Delivered To: Other Relationship to Patient: Life Partner Social Media Analyst Name: Joseph Davis Delivery Method: - Bertha Days: Prior Verbal Notification: Recipient Understood Notice: Recipient Signature: Med Rec Note Co-signed by Attending: Coverage Notice Comment: Last DP export: 06/22/18 9:53 a Patient Name: RADHA PAT Page [phone] at 1102 All edits/amendments must be made on the electronic document DICTATION DATE: 06/22/18 110 LANDSCAPE HORTICULTURE INSTRUCTOR: MARINA 06/22/181101 RPT#: [id number] DC DATE:06/20/18 STATUS: DIS IN [facility] [address] [place] [address] END OF REPORT
--- NOTE | 2018-06-26 13:37 | OP ---
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 OPERATION PERFORMED TODAY: Removal of remaining HeRO venous outflow device and implantation of an Artegraft, femoral-femoral loop arteriovenous graft in the left thigh. SURGEON: Olayinka Martin MD ANESTHESIA: General with LMA per NURSING ADMIN and also Dr. Kaiser. PREOPERATIVE NOTE: Mr. Dsouza is an unfortunate 58-year-old diabetic, hypertensive, -Greek male from the [facility]. He is on chronic hemodialysis, but has severe problems with thrombophilia and has thrombosed many accesses. He has peripheral arterial disease or atherosclerosis and that has also made it difficult to create arterial anastomoses with grafts, etc. He has failed a couple of different HeRO graft. He is presently dialyzing with a right IJ tunneled dialysis catheter. The outflow portion of his HeRO graft is still in place on the left and it needs to be removed as he has a significant central vein stenosis and affect with stenosis of the right brachiocephalic and superior vena cava. He has chosen to have a graft implanted in his thigh as opposed to his right arm as he understandably hopes to avoid injury to his right arm, but we have discussed with him also the potential for ischemic injury to his leg. He did have a CTA preop which demonstrated fairly clean or open femoral vessels. With best outflow being on the left side and so he is going to have a graft implanted in the left groin today. Under general anesthesia, the patient was placed in supine position, prepped and draped in sterile manner. An incision was made over the exterior or subcutaneous portion of the HeRO outflow device. This was exposed with electrocautery. The PTFE graft was transected and the connector freed from the surrounding tissues. A pursestring suture of 2-0 Vicryl was placed and the outflow device then slowly removed by traction. This was very easy to do. There was no evidence of any large thrombus protruding from the device. The pursestring suture was tied and hemostasis was excellent. The wound was infiltrated with 0.25% Marcaine without epinephrine and closed with interrupted Vicryls and running intracuticular Monocryl. The incision was sealed with glue and dressed with Maxorb Ag, Tegaderm, and Cavilon. I used ultrasound in his left thigh then to look at his common femoral and saphenous veins and a femoral artery. The patient has a high bifurcation of the artery and made an oblique incision and exposed the saphenous vein and foramen ovale. Tributaries of the saphenous vein were divided between ligatures of 3-0 Vicryl and the saphenous vein immediately below the first valve was controlled with Silastic loops and prepared for anastomosis. I exposed the proximal superficial femoral artery or what I think is the superficial femoral artery as I did not actually visualize the common femoral. I just think that he has a high bifurcation. The artery OPERATIVE REPORT [id number] RADHA DSOUZA was controlled with Silastic loops. The Artegraft was removed from its package and rinsed according to licensed electrician's instructions and flushed with heparinized saline. It was beveled and anastomosed end-to-side to the proximal greater saphenous vein with running 6-0 Prolene and the vein flushed with heparinized saline. The graft was placed in a subcutaneous tunnel, which required 1 counterincision and back in the femoral wound, the graft was shortened and bevelled. The artery occluded with Silastic loops, but also it required a metal clamps to obtain hemostasis in the area. The anastomosis was done with continuous running 6-0 Prolene and when the occluding clamps and loops were released, excellent flow developed immediately within the new AV graft and the suture lines were both hemostatic. There was good Doppler flow in the femoral artery above and below and in the artery graft. The wounds were infiltrated with 0.25% Marcaine and irrigated with saline and then closed with interrupted 3-0 Vicryl and running intracuticular 4-0 Monocryl. I left a 15-Gibralt[place] round fluted KHANH type drain in the left groin, brought out laterally through a separate stab incision and I plan to leave his drain in place until the volumes recorded are less than 30 cc for 24 hours for 2 consecutive days. Mr. Dsouza was awakened and taken to the recovery room in stable condition. Blood loss during the procedure was about 25 cc perhaps, none was replaced. All sponges, instruments and needles were accounted for. One drain was used as I described and no specimen was submitted for histopathology or even gross exam. PLAN: For the patient to remain in overnight observation status for now. He is to have dialysis here tomorrow and resume all of his home medications to be reconciled with nephrology. If he has no problems with bleeding, then I think it would be edwards to put him back on anticoagulants and I think possibly Eliquis and Brilinta would be the combination I would recommend if there have been no bleeding complications before. We will need to watch closely for evidence of lower extremity ischemia. TRANSINT:[id number] Voice Confirmation ID: [id number] DOCUMENT ID: [id number] cc: Breanne Buitrago OLAYINKA MARTIN MD at 1337 CC: BREANNE BUITRAGO and RYAN YANG [id number] DICTATION DATE: 06/19/181812 TRANSMISSION SPECIALIST: 06/19/182119 [facility] 06/20/18 [facility] [address] [place] [address]
== END 2018-06-20 16:20 | disposition home or self-care (01) ==
LOC: D.OPS 09:29 → D.M2 18:30 → D.OPS 06-20 10:43 → D.M2 06-20 10:43 → D.OPS 06-20 10:43 → D.M2 06-20 16:20 → D.OPS 06-20 16:20
PROVIDERS: Surgery
DX: T82.868A Thrombosis due to vascular prosthetic devices, implants and grafts, initial encounter (principal); N18.6 End stage renal disease; I12.0 Hypertensive chronic kidney disease with stage 5 chronic kidney disease or end stage renal disease; I87.1 Compression of vein; D68.59 Other primary thrombophilia; Y83.8 Other surgical procedures as the cause of abnormal reaction of the patient, or of later complication, without mention of misadventure at the time of the procedure; E10.22 Type 1 diabetes mellitus with diabetic chronic kidney disease; Z99.2 Dependence on renal dialysis; E10.51 Type 1 diabetes mellitus with diabetic peripheral angiopathy without gangrene